=== PATIENT | male | born 1965 | race African-American/Black ===

== ENCOUNTER 2016-12-24 15:48 | Emergency (ER) | payer OTHER ==
[2016-12-24] MEDS ORDERED: Ketorolac Tromethamine 60 MG/2 ML VIAL ONE (16:20)
== END 2016-12-24 16:48 | disposition home or self-care (01) ==
LOC: BURERS 15:48
DX: S39.012A Strain of muscle, fascia and tendon of lower back, initial encounter (principal); X50.9XXA Other and unspecified overexertion or strenuous movements or postures, initial encounter
CPT/HCPCS: 96372; J1885

== ENCOUNTER 2020-12-07 12:05 | Outpatient (CLI) | payer BC | END 2020-12-07 12:06 | disposition home or self-care (01) | LOC: BURRAD 12:05 | PROVIDERS: ATTEND Family Medicine | DX: M50.122 Cervical disc disorder at C5-C6 level with radiculopathy (principal); M47.22 Other spondylosis with radiculopathy, cervical region; M25.511 Pain in right shoulder | CPT/HCPCS: 72040 ==

== ENCOUNTER 2023-11-23 11:08 | Outpatient (CLI) | payer BC | END 2023-11-23 11:09 | disposition home or self-care (01) | LOC: BURRAD 11:08 | PROVIDERS: ATTEND Student in an Organized Health Care Education/Training Program | DX: M99.01 Segmental and somatic dysfunction of cervical region (principal); M77.8 Other enthesopathies, not elsewhere classified; M47.812 Spondylosis without myelopathy or radiculopathy, cervical region | CPT/HCPCS: 72040 ==